=== PATIENT | male | born 1935 | race Caucasian/White ===

== ENCOUNTER 2016-12-28 15:00 | Outpatient (CLI) | payer OTHER | END 2016-12-28 15:01 | disposition home or self-care (01) | DX: I25.10 Atherosclerotic heart disease of native coronary artery without angina pectoris (principal) ==

== ENCOUNTER 2017-06-28 16:14 | Emergency (ER) | payer OTHER ==
[2017-06-28] MEDS ORDERED: ASPIRIN CHEW 81 MG TABLET PO STA (16:39)
--- NOTE | 2017-06-28 16:45 | ED Physician Documentation ---
PD HPI CHEST PAIN - Stated complaint Stated Complaint: CHEST DISCOMFORT - Chief complaint Chief Complaint: Cardiac - History obtained from History obtained from: Patient - History of Present Illness Timing - onset: Other (82-year-old gentleman who is about 20 years out from a coronary bypass and had a negative stress test per him in [place] 2 months ago presents with chest pain. It started as a dull intermittent pain 2 days ago and now has been constant but still dull and mild for the last 24 hours. It is not associated with increased shortness of breath, pedal edema, radiation, dizziness, diaphoresis.) Review of Systems Constitutional: denies: Fever, Chills Ears: denies: Loss of hearing Nose: denies: Rhinorrhea / runny nose, Congestion Throat: denies: Sore throat Cardiac: denies: Palpitations, Pedal edema, Calf pain Respiratory: denies: Dyspnea, Cough GI: denies: Abdominal Pain PD PAST MEDICAL HISTORY - Past Medical History Past Medical History: Yes Cardiovascular: Hypertension, High cholesterol, Coronary artery disease Other Past Medical History: chronic back pain - Past Surgical History Past Surgical History: Yes Cardiovascular: CABG - Present Medications Home Medications: Ambulatory Orders Medication Instructions Recorded Confirmed Aspirin [Aspirin EC] 81 mg PO DAILY 06/28/17 06/28/17 Metoprolol Tartrate 100 mg PO BID 06/28/17 06/28/17 Omeprazole [PriLOSEC] 20 mg PO DAILY 06/28/17 06/28/17 Rosuvastatin Calcium [Crestor] 40 mg PO DAILY 06/28/17 06/28/17 - Allergies Allergies/Adverse Reactions: Allergies Allergy/AdvReac Type Severity Reaction Status Date / Time No Known Drug Allergies Allergy Verified 06/28/17 16:25 - Social History Does the pt smoke?: No Smoking Status: Never smoker Does the pt drink ETOH?: No Does the pt have substance abuse?: No - Family History Family history: reports: Non contributory PD ED PE NORMAL - Vitals Vital signs reviewed: Yes - General General: Alert and oriented X 3, No acute distress - HEENT HEENT: PERRL, EOMI - Neck Neck: Supple, no meningeal sign, No bony TTP - Cardiac Cardiac: RRR, No murmur - Respiratory Respiratory: No respiratory distress, Clear bilaterally - Abdomen Abdomen: Soft, Non tender - Back Back: No CVA TTP, No spinal TTP - Derm Derm: Normal color, Warm and dry - Extremities Extremities: No edema, No calf tenderness / cord - Neuro Neuro: Alert and oriented X 3, Normal speech - Psych Psych: Normal mood, Normal affect Results - Vitals Vitals: Vital Signs - 24 hr 06/28/17 06/28/17 06/28/17 16:22 18:33 19:19 Temperature 36.2 C L Heart Rate 58 L 54 L 54 L Respiratory 18 15 19 Rate Blood Pressure 157/77 H 154/67 H 172/103 H O2 Saturation 99 97 Oxygen O2 Source Room air - EKG (time done) 1639 Rate: Rate (enter#) (54) Rhythm: NSR [place]: LAD Intervals: Normal MD QRS: Normal Ischemia: Non specific changes (Flat inferior T waves, also lateral, no change from prior EKG dated 12/28/2016.) Computer interpretation: Agree with computer - Labs Labs: Laboratory Tests 06/28/17 06/28/17 06/28/17 16:57 16:57 16:57 WBC 5.6 RBC 4.14 L Hgb 13.3 L Hct 38.8 L MCV 93.7 MCH 32.0 H MCHC 34.2 RDW 13.2 Plt Count 172 MPV 8.5 Neut # 3.2 Lymph # 1.6 [place] # 0.8 Eos # 0.1 Baso # 0.0 Absolute Nucleated RBC 0.00 Nucleated RBCs 0.0 Sodium 139 Potassium 3.9 Chloride 106 Carbon Dioxide 27 Anion Gap 6.0 BUN 19 Creatinine 1.3 H Estimated GFR (MDRD) 53 L Glucose 98 Calcium 9.2 Total Bilirubin 0.9 AST 30 ALT 23 Alkaline Phosphatase 45 Troponin I < 0.04 Total Protein 6.9 Albumin 4.4 Globulin 2.5 Albumin/Globulin Ratio 1.8 Lipase 38 06/28/17 19:01 WBC RBC Hgb Hct MCV MCH MCHC RDW Plt Count MPV Neut # Lymph # [place] # Eos # Baso # Absolute Nucleated RBC Nucleated RBCs Sodium Potassium Chloride Carbon Dioxide Anion Gap BUN Creatinine Estimated GFR (MDRD) Glucose Calcium Total Bilirubin AST ALT Alkaline Phosphatase Troponin I < 0.04 Total Protein Albumin Globulin Albumin/Globulin Ratio Lipase - Rads (name of study) 1v chest Radiology: EMP read contemporaneously (NAD) PD MEDICAL DECISION MAKING - ED course ED course: 82-year-old gentleman with known coronary disease, now with atypical chest pain of greater than a days duration and 2 negative troponins in the emergency department and he had a recent negative stress test. Departure - Departure Disposition: 01 Home, Self Care Clinical Impression: Chest pain Qualifiers: Chest pain type: unspecified Qualified Code(s): R07.9 - Chest pain, unspecified Condition: Good Record reviewed to determine appropriate education?: Yes Instructions: ED Chest Pain NonCardiac Comments: Call your doctor to arrange a follow-up appointment, make the next available appointment. In the interim, return anytime if worse or if new symptoms develop. Your blood pressure was elevated today on check into the emergency department. This does not mean that you have hypertension, it is a common phenomenon to come to the emergency department and have elevated blood pressure. I recommend that she see your primary care physician within the week to have it rechecked when you are feeling better.
[2017-06-28] MEDS ORDERED: ASPIRIN CHEW 81 MG TABLET ONE (16:57)
[2017-06-28 17:06] LABS: BASOPHILS % (AUTO) 0.4 %; EOSINOPHILS # (AUTO) 0.1 10^3/uL (0.0-0.7); EOSINOPHILS % (AUTO) 2.3 %; HCT - HEMATOCRIT 38.8 % (42.0-52.0); HGB - HEMOGLOBIN 13.3 g/dL (14.0-18.0); LYMPHOCYTES # (AUTO) 1.6 10^3/uL (1.5-3.5); LYMPHOCYTES % (AUTO) 27.7 %; MEAN CORPUSCULAR HGB CONC 34.2 g/dL (32.0-36.0); MEAN CORPUSCULAR VOLUME 93.7 fL (80.0-94.0); MEAN PLATELET VOLUME 8.5 fL (7.4-11.4); MONOCYTES # (AUTO) 0.8 10^3/uL (0.0-1.0); MONOCYTES % (AUTO) 13.3 %; NEUTROPHILS # (AUTO) 3.2 10^3/uL (1.5-6.6); NEUTROPHILS % (AUTO) 56.3 %; RED BLOOD COUNT 4.14 10^6/uL (4.70-6.10); RED CELL DISTRIBUTION WIDTH 13.2 % (12.0-15.0); UNCORRECTED WHITE BLOOD COUNT 5.6 x10^3/uL; WHITE BLOOD COUNT 5.6 x10^3/uL (4.8-10.8)
[2017-06-28 17:16] LABS: ALBUMIN/GLOBULIN RATIO 1.8 (1.0-2.2); BILIRUBIN,TOTAL 0.9 mg/dL (0.2-1.0); CALCIUM 9.2 mg/dL (8.5-10.3); CREATININE 1.3 mg/dL (0.6-1.2); POTASSIUM 3.9 mmol/L (3.5-5.0); TOTAL PROTEIN 6.9 g/dL (6.7-8.2)
--- NOTE | 2017-06-28 17:33 | XRAY Preliminary Report ---
Exam: XR Chest 1 View IMPRESSION: No acute cardiopulmonary abnormality. [facility] SITE ID: [id number]
--- NOTE | 2017-06-28 17:36 | XRAY Report ---
EXAM: CHEST RADIOGRAPHY EXAM DATE: 06/28/2017 05:17 PM. CLINICAL HISTORY: Chest pain. COMPARISON: 12/03/2009 chest x-ray. TECHNIQUE: 1 view. FINDINGS: Lungs/Pleura: No focal opacities evident. No pleural effusion. No pneumothorax. Mediastinum: Within exam limitations, cardiomediastinal contour is normal. Other: Status post CABG. IMPRESSION: No acute cardiopulmonary abnormality. [facility] Referring Provider Line: [phone] SITE ID: [id number]
[2017-06-28 19:56] VITALS: BP 165/63
== END 2017-06-28 19:56 | disposition home or self-care (01) ==
LOC: ED 16:14
DX: R07.9 Chest pain, unspecified (principal); I10 Essential (primary) hypertension; I25.10 Atherosclerotic heart disease of native coronary artery without angina pectoris; Z95.1 Presence of aortocoronary bypass graft; Z79.82 Long term (current) use of aspirin
CPT/HCPCS: 36415; 71010; 80053; 83690; 84484; 85025; 93005; 99283; 99284; A9270

== ENCOUNTER 2021-06-03 12:12 | Outpatient (CLI) | payer OTHER ==
--- NOTE | 2021-06-03 12:45 | XRAY Report ---
PROCEDURE: Chest 2 View X-Ray INDICATIONS: COUGH TECHNIQUE: 2 view(s) of the chest. COMPARISON: None. FINDINGS: Surgical changes and devices: Median sternotomy wires and surgical clips are seen. Lungs and pleura: No pleural effusions or pneumothorax. Small calcified granuloma is noted projectin g in lateral aspect of right midlung field. No focal infiltrate. Mediastinum: Mediastinal contours are normal. Heart size is normal. Bones and chest wall: No suspicious bony abnormalities. Soft tissues appear unremarkable. IMPRESSION: No acute cardiopulmonary pathology. Reviewed by: Darrick Deleon MD on 06/03/2021 12:44 PM PDT Approved by: Darrick Deleon MD on 06/03/2021 12:44 PM PDT Station ID: [id number]
== END 2021-06-03 12:13 | disposition home or self-care (01) ==
LOC: DI 12:12
PROVIDERS: ATTEND Internal Medicine
DX: R05 Cough (principal)

== ENCOUNTER 2021-10-24 13:56 | Outpatient (CLI) | payer OTHER ==
--- NOTE | 2021-10-24 17:04 | XRAY Report ---
PROCEDURE: Chest 2 View X-Ray INDICATIONS: CHEST PAIN R/O PNA TECHNIQUE: 2 view(s) of the chest. COMPARISON: . FINDINGS: Surgical changes and devices: Status post CABG procedure. Lungs and pleura: No pleural effusions or pneumothorax. Lungs are clear of acute opacities calcifie d granuloma in the right midlung is stable.. Mediastinum: Mediastinal contours are normal. Heart size is normal. Bones and chest wall: No suspicious bony abnormalities. Soft tissues appear unremarkable. IMPRESSION: No acute cardiopulmonary disease process. Reviewed by: Heavenly Trinh MD, PhD on 10/24/2021 5:02 PM PST Approved by: Heavenly Trinh MD, PhD on 10/24/2021 5:02 PM PST Station ID: [id number]
== END 2021-10-24 13:57 | disposition home or self-care (01) ==
LOC: DI 13:56
PROVIDERS: ATTEND Student in an Organized Health Care Education/Training Program
DX: R07.9 Chest pain, unspecified (principal)

== ENCOUNTER 2021-11-06 10:50 | Observation (INO) | payer OTHER ==
--- NOTE | 2021-11-06 10:57 | ED Physician Documentation ---
PD HPI CHEST PAIN - Stated complaint Stated Complaint: CHEST PX - History obtained from History obtained from: Patient - History of Present Illness Timing - onset: How many weeks ago (2-3 weeks of intermittent chest pressure, not strictly associated with activity, but he says he has been doing less activity daily because of it. Will get symptoms at rest at times too. More consistent the past 2 days and has had it this morning since awakening.) Timing - onset during: Other (occuring randomly, but he has been limiting his activity due to it.). No: Exertion, Eating Timing - duration: Minutes Timing - details: Intermittant Quality: Pressure, Tightness. No: Sharp, Tearing Location: Substernal, Left chest Radiation: No: Jaw, Neck, Back Improved by: No: Rest Worsened by: No: Exertion (not consistently, has had the pressure with some act ivity, but has had it at rest as well.), Inspiration, Eating, Movement Associated symptoms: Feeling faint / dizzy. No: Shortness of air, Nausea, General Weakness, Palpitations Similar symptoms before: Has not had sx before (remote history of CAD with CABG, but states no chest pains in recent past until past few weeks, with increasing frequency.) Recently seen: Not recently seen Review of Systems Constitutional: denies: Fever, Chills Nose: denies: Rhinorrhea / runny nose, Congestion Throat: denies: Sore throat Cardiac: denies: Palpitations, Pedal edema Respiratory: denies: Dyspnea, Cough GI: denies: Abdominal Pain, Nausea, Vomiting, Diarrhea, Bloody / black stool Skin: denies: Rash, Lesions Neurologic: denies: Generalized weakness, Near syncope PD PAST MEDICAL HISTORY - Past Medical History Cardiovascular: Hypertension, High cholesterol, Coronary artery disease, Murmur - Past Surgical History Past Surgical History: Yes Cardiovascular: CABG - Present Medications Home Medications: Ambulatory Orders Medication Instructions Recorded Confirmed Aspirin [Aspirin EC] 81 mg PO DAILY 06/28/17 11/06/21 Metoprolol Tartrate 100 mg PO BID 06/28/17 11/06/21 Rosuvastatin Calcium [Crestor] 40 mg PO DAILY 06/28/17 11/06/21 - Allergies Allergies/Adverse Reactions: Allergies Allergy/AdvReac Type Severity Reaction Status Date / Time No Known Drug Allergies Allergy Verified 06/28/17 16:25 - Social History Does the pt smoke?: No Smoking Status: Never smoker Does the pt drink ETOH?: No Does the pt have substance abuse?: No PD ED PE NORMAL - Vitals Vital signs reviewed: Yes - General General: Alert and oriented X 3, No acute distress, Well developed/nourished - HEENT HEENT: Pharynx benign - Neck Neck: Supple, no meningeal sign, No adenopathy - Cardiac Cardiac: RRR, Other (1/6 murmur left chest without radiation. ) - Respiratory Respiratory: Clear bilaterally, Other (no chestwall tenderness. ) - Abdomen Abdomen: Soft, Non tender, No organomegaly - Derm Derm: Normal color, Warm and dry - Extremities Extremities: Normal ROM s pain, No edema, No calf tenderness / cord - Neuro Neuro: Alert and oriented X 3, No motor deficit, Normal speech Results - Vitals Vitals: Vital Signs - 24 hr 11/06/21 11/06/21 11:00 11:29 Temperature 36.4 C L Heart Rate 57 L 51 L Respiratory 18 18 Rate Blood Pressure 171/64 H 167/77 H O2 Saturation 99 98 Oxygen O2 Source Room air - EKG (time done) 10:57 Rate: Rate (enter#) (53) Rhythm: Sinus bradycardia [place]: Normal Intervals: Normal NE QRS: Normal Ischemia: Normal ST segments. No: ST elevation c/w ischemia, ST depression Compare to prior EKG: Unchanged from prior EKG - Labs Labs: Laboratory Tests 11/06/21 11/06/21 11/06/21 11:29 11:29 11:29 WBC 6.0 RBC 3.74 L Hgb 12.1 L Hct 35.8 L MCV 95.7 H MCH 32.4 H MCHC 33.8 RDW 12.6 Plt Count 186 MPV 9.6 Neut # (Auto) 3.5 Lymph # (Auto) 1.1 L [place] # (Auto) 0.9 Eos # (Auto) 0.5 Baso # (Auto) 0.0 Absolute Nucleated RBC 0.00 Nucleated RBC % 0.0 Sodium 137 Potassium 3.9 Chloride 103 Carbon Dioxide 26 Anion Gap 8.0 BUN 16 Creatinine 1.1 Estimated GFR (MDRD) 63 L Glucose 108 H Calcium 9.0 Total Bilirubin 0.6 AST 18 ALT 12 Alkaline Phosphatase 58 Troponin I High Sens 6.9 B-Natriuretic Peptide Total Protein 6.4 L Albumin 3.8 Globulin 2.6 Albumin/Globulin Ratio 1.5 Lipase 36 11/06/21 11:29 WBC RBC Hgb Hct MCV MCH MCHC RDW Plt Count MPV Neut # (Auto) Lymph # (Auto) [place] # (Auto) Eos # (Auto) Baso # (Auto) Absolute Nucleated RBC Nucleated RBC % Sodium Potassium Chloride Carbon Dioxide Anion Gap BUN Creatinine Estimated GFR (MDRD) Glucose Calcium Total Bilirubin AST ALT Alkaline Phosphatase Troponin I High Sens B-Natriuretic Peptide 209 H Total Protein Albumin Globulin Albumin/Globulin Ratio Lipase - Rads (name of study) chest xray Radiology: Prelim report reviewed (no acute process. Prior CABG changes noted (sternotomy wires and clips).), See rad report PD MEDICAL DECISION MAKING - ED course Complexity details: reviewed results, considered differential (concern for unstable /rest angina, with some element of exertional provocation. No change here with GI cocktail. No other obvious cause. Heart score of 5 so moderate risk for ACS. ), d/w patient Departure - Departure Disposition: ED Place in Observation Clinical Impression: Chest pressure, Chest pain, rule out acute myocardial infarction Condition: Stable Record reviewed to determine appropriate education?: Yes
[2021-11-06] MEDS ORDERED: MAG HYDROX/AL HYDROX/SIMETH 30 ML UDC PO STA (11:20)
[2021-11-06] MEDS ORDERED: LIDOCAINE VISCOUS 2% 15 ML UDC MM STA (11:20)
[2021-11-06 11:35] LABS: BASOPHILS % (AUTO) 0.5 %; EOSINOPHILS # (AUTO) 0.5 10^3/uL (0.0-0.7); EOSINOPHILS % (AUTO) 8.5 %; HCT - HEMATOCRIT 35.8 % (42.0-52.0); HGB - HEMOGLOBIN 12.1 g/dL (14.0-18.0); LYMPHOCYTES # (AUTO) 1.1 10^3/uL (1.5-3.5); LYMPHOCYTES % (AUTO) 17.9 %; MEAN CORPUSCULAR HEMOGLOBIN 32.4 pg (27.0-31.0); MEAN CORPUSCULAR HGB CONC 33.8 g/dL (32.0-36.0); MEAN CORPUSCULAR VOLUME 95.7 fL (80.0-94.0); MEAN PLATELET VOLUME 9.6 fL (7.4-11.4); MONOCYTES # (AUTO) 0.9 10^3/uL (0.0-1.0); MONOCYTES % (AUTO) 14.1 %; NEUTROPHILS # (AUTO) 3.5 10^3/uL (1.5-6.6); NEUTROPHILS % (AUTO) 58.8 %; PLT - PLATELET COUNT 186 10^3/uL (130-450); RED BLOOD COUNT 3.74 10^6/uL (4.70-6.10); RED CELL DISTRIBUTION WIDTH 12.6 % (12.0-15.0)
[2021-11-06 11:52] LABS: ALBUMIN 3.8 g/dL (3.2-5.5); ALBUMIN/GLOBULIN RATIO 1.5 (1.0-2.2); BILIRUBIN,TOTAL 0.6 mg/dL (0.2-1.0); CREATININE 1.1 mg/dL (0.6-1.2); POTASSIUM 3.9 mmol/L (3.5-5.0); TOTAL PROTEIN 6.4 g/dL (6.7-8.2)
[2021-11-06] MEDS ORDERED: NITROGLYCERIN SL 0.4 MG TABLET SL STA (11:54)
--- NOTE | 2021-11-06 11:55 | XRAY Report ---
PROCEDURE: Chest 1 View X-Ray INDICATIONS: Chest Pain TECHNIQUE: One view of the chest was acquired. COMPARISON: 10/24/2021, 06/03/2021 FINDINGS: Surgical changes and devices: Post CABG changes are seen. Lungs and pleura: No pleural effusions or pneumothorax. Lungs are clear. Mediastinum: The aorta is prominent and tortuous. The cardiac contours are within normal limits. Bones and chest wall: No suspicious bony lesions. Mild generalized degenerative changes are seen. O verlying soft tissues appear unremarkable. IMPRESSION: No acute cardiopulmonary process is seen. Postoperative and degenerative changes are seen. Reviewed by: Rashad Velasco MD on 11/06/2021 10:53 AM [facility] Approved by: Rashad Velasco MD on 11/06/2021 10:53 AM [facility] Station ID: [id number]
[2021-11-06] MEDS ORDERED: ONDANSETRON ODT 4 MG TABLET TL PRN (13:22)
[2021-11-06] MEDS ORDERED: SODIUM CHLORIDE FLUSH 0.9% 10 ML SYRINGE IVP PRN (13:22)
[2021-11-06] MEDS ORDERED: ACETAMINOPHEN 325 MG TABLET PO PRN (13:22)
[2021-11-06] MEDS ORDERED: NITROGLYCERIN SL 0.4 MG TABLET SL PRN (13:27)
--- NOTE | 2021-11-06 13:30 | HISTORY & PHYSICAL EXAMINATION ---
Chief Complaint - Chief Complaint Chief Complaint: Chest pain History of Present Illness - Admitted From Admitted From:: Home - History Obtained From Records Reviewed: Yes History obtained from: Patient, ER Physician, EMR - History of Present Illness HPI Comment/Other: This is a 86-year-old male with a past medical history significant for coronary artery disease status post CABG approximately 20 years ago who presents today complaining of left-sided chest pain. He states this has been going on now for about 6 months and has been intermittent. It has progressed over the past few days and became more prominent this morning. He states is located over the left side and is nonradiating. It feels more like an ache rather than a true pain. No associated dyspnea, lightheadedness, nausea, vomiting. The pain tends to occur at rest. It is not worse with activity. The only relieving factor he finds is to just rest for a period of time. He states the pain can last for up to hours at a time. We discussed goals of care and he would like to be a full code. History - Past Medical History Cardiovascular: reports: Hypertension, High cholesterol, Coronary artery disease, Murmur - Past Surgical History Cardiovascular: reports: CABG - Family & Social History Family History Comment/Other: He reports no significant family history to his knowledge. Living arrangement: At home Living Situation: With spouse/s.o. Social History Notes: He lives at home with his . He previously smoked but quit quite a few years ago. Meds/Allgy - Home Medications Home Medications: Ambulatory Orders Medication Instructions Recorded Confirmed Aspirin [Aspirin EC] 81 mg PO DAILY 06/28/17 11/06/21 Metoprolol Tartrate 100 mg PO BID 06/28/17 11/06/21 Rosuvastatin Calcium [Crestor] 40 mg PO DAILY 06/28/17 11/06/21 - Allergies Allergies/Adverse Reactions: Allergies Allergy/AdvReac Type Severity Reaction Status Date / Time No Known Drug Allergies Allergy Verified 06/28/17 16:25 Review of Systems - Constitutional Constitutional: denies: Fever, Chills - Ears, Nose & Throat Ears, Nose & Throat: denies: Nasal discharge, Sore throat - Cardiovascular Cariovascular: reports: Chest pain. denies: Palpitations, Edema, Lightheadedness, Syncope, Exertional dyspnea, Decr. exercise tolerance - Respiratory Respiratory: denies: Cough, Sputum production, SOB at rest, SOB with exertion - Gastrointestinal Gastrointestinal: denies: Abdominal pain, Nausea, Vomiting - Genitourinary Genitourinary: denies: Dysuria, Frequency, Urgency - Neurological Neurological: denies: Dizziness - All Other Systems All Other Systems: reports: Reviewed and negative Prior Level of Functionality: He is independent with his ADLs. Exam - Vital Signs Reviewed Vital Signs: Yes Vital Signs: Vital Signs x48h Temp Pulse Resp BP Pulse Ox 11/06/21 13:03 52 L 18 118/58 L 100 11/06/21 11:29 51 L 18 167/77 H 98 11/06/21 11:00 36.4 C L 57 L 18 171/64 H 99 - Physical Exam General Appearance: positive: No acute distress, Alert Eyes Bilateral: positive: Normal inspection, Conjunctivae nml ENT: positive: ENT inspection nml Neck: positive: Nml inspection Respiratory: positive: No respiratory distress. negative: Chest non-tender (He has left-sided chest tenderness.), Wheezes, Rales Cardiovascular: positive: Regular rate & rhythm, Systolic murmur. negative: Tachycardia Abdomen: positive: Non-tender, No distention. negative: Tenderness Skin: positive: Warm, Dry Extremities: positive: No pedal edema Neurologic/Psychiatric: positive: Motor nml. negative: Disoriented to person, Disoriented to place, Disoriented to time Conclusion/Plan - Problem List (1) Chest pain Conclusion/Plan: This is a gentleman with history of coronary artery disease status post CABG who presents with chest pain and has a heart score of 5. His EKG does not suggest ischemia and initial troponin is normal. His pain is somewhat atypical and may be consistent with costochondritis. Nonetheless given his cardiac history, we will place him in observation and continue his home aspirin. We will make him n.p.o. at midnight for Lexiscan stress test tomorrow. If this is negative then he can be discharged home to follow-up with his primary care physician otherwise he will contact cardiology. (2) Coronary artery disease Conclusion/Plan: He has a known history of coronary artery disease with CABG over 20 years ago. Given his chest pain, we will place in observation for stress test. (3) Hypertension Conclusion/Plan: He was in his hypertensive with systolics in the 150s but now he is normotensive. We will hold his home beta-sherlyn for the stress test and then we will resume it. If he remains hypertensive we will add amlodipine. - Lab Results Lab results reviewed: Yes Jeffery Bones: 11/06/21 11:29 11/06/21 11:29 - EKG Results EKG Interpreted Independently: Yes EKG Findings: EKG reveals a sinus rhythm without evidence of ischemia. Core Measures - Anticipated LOS I expect patient to be DC'd or transferred within 96 hours.: Yes - Issues Hospital Issues and Management Plan: 86-year-old male with a history of coronary artery disease status post CABG 20 years ago presents with chest pain. We will place him in observation for a stress test in the morning. - DVT/VTE - Prophylaxis VTE/DVT Device ordered at admit?: Yes VTE/DVT Prophylaxis med ordered at admit?: Yes
[2021-11-06 15:00] LABS: B. PARAPERTUSSIS- RESP PCR PAN NOT DETECTED; B. PERTUSSIS- RESP PCR PANEL NOT DETECTED; C. PNEUMONIAE- RESP PCR PANEL NOT DETECTED; CORONAVIRUS 229E-RESP PCR NOT DETECTED; CORONAVIRUS HKU1-RESP PCR NOT DETECTED; CORONAVIRUS NL63-RESP PCR NOT DETECTED; CORONAVIRUS OC43-RESP PCR NOT DETECTED; HUMAN METAPNEUMOVIRUS NOT DETECTED; INFLUENZA A- RESP PCR PANEL NOT DETECTED; INFLUENZA B - RESP PCR PANEL NOT DETECTED; M. PNEUMONIAE- RESP PCR PANEL NOT DETECTED; PARAINFLUENZA VIRUS 1 NOT DETECTED; PARAINFLUENZA VIRUS 2 NOT DETECTED; PARAINFLUENZA VIRUS 3 NOT DETECTED; PARAINFLUENZA VIRUS 4 NOT DETECTED; RHINOVIRUS/ENTEROVIRUS NOT DETECTED; RSV- RESP PCR PANEL NOT DETECTED; SARS-CoV-2 -RESP PCR PANEL NOT DETECTED
[2021-11-06] MEDS: SODIUM CHLORIDE FLUSH 0.9% 10 ML SYRINGE IVP SCH (17:09)
[2021-11-07] MEDS: SODIUM CHLORIDE FLUSH 0.9% 10 ML SYRINGE IVP SCH ×3 (04:46→16:45)
[2021-11-07] MEDS ORDERED: ENOXAPARIN 40 MG/0.4 ML SYRINGE SUBQ SCH (09:00)
[2021-11-07] MEDS ORDERED: ASPIRIN EC 81 MG TABLET PO SCH (09:00)
[2021-11-07] MEDS ORDERED: REGADENOSON 0.4 MG/5 ML SYRINGE IVP ONE ×2 (14:05→15:54)
[2021-11-07] MEDS ORDERED: AMINOPHYLLINE 500 MG/20 ML VIAL ONE (14:05)
--- NOTE | 2021-11-07 14:57 | CARDIAC PROCEDURE NOTE ---
Stress Test Report Service Date: 11/07/21 Ordering Provider: Dr France Indication for Test: Chest pain Significant Medical History: Chest pain intermittent for many mos Cardiac Risk Factors: Age, Hx HTN, Hx CAD, ex-smoker Type of Stress Test: Pharmacologic Stress Test with MPI Pharmacologic Agent: Lexiscan Procedure: After signing informed consent, the patient underwent a pharmaceutical stress test with nuclear cardiac imaging. The patient had mild SOB and lightheadedness, he had no chest pain. Resting BP: 120/54 Peak BP: 84/48 Resting HR: 60 Peak HR: 86 Blood pressure dropped with Lexiscan (probable vasodilation) and remained low for 8 min. Aminophylline was given for reversal with saline 30cc flush. BP improved to 111/50 Resting EKG: NSR, rate 60, PVC, left IVCD, left anterior fascicular block, poor R wave progression. EKG at peak: no new ST segment ot T wvae chenges were seen. Summary: 1) Abnormal resting EKG. 2) No chest pain developed with pharmaceutical stress. 3) Low BP persisted after Lexiscan given, Aminophylline was given for reversal. 4) EKG showed no ischemic changes. CONCLUSION: 1) No ischemic changes on EKG during this pharmaceutical stress test 2) Nuclear images were reported separately and showed: A small, fixed perfusion defect is seen in the distal perry-septal wall suggestive of a prior infarct. Preserved LVEF. No reversible defects seen to suggest ischemia. IMPRESSION: 1) No myocardial ischemia by pharmaceutical stress test and nuclear imaging. 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 Preserved LVEF. 3) This patient's cardiac risk: Moderate.
[2021-11-07] MEDS ORDERED: AMINOPHYLLINE 500 MG/20 ML VIAL IVP ONE (15:57)
[2021-11-07 16:30] VITALS: BP 157/69
--- NOTE | 2021-11-07 17:23 | Nuclear Medicine Report ---
PROCEDURE: Rest and exercise myocardial perfusion SPECT with gated imaging and ejection fraction INDICATIONS: Chest pain. RADIOPHARMACEUTICAL: 11.1 mCi Tc-99m Myoview IV at rest and 35.1 mCi Tc-99m Myoview IV at peak exerc ise. [id number] was performed. TECHNIQUE: Radiopharmaceutical was injected at peak stress test, and also at rest. SPECT images wer e obtained. SPECT myocardial perfusion images were displayed in short axis, horizontal long axis, an d vertical long axis views. Gated images were reviewed using Auto[employer] software. COMPARISON: None available. FINDINGS: Raw data: There is good myocardial labeling by radiotracer. No significant motion artifacts. Lung- to-heart ratio is 0.36 (normal is less than 0.46 for tetrafosmin tracer). Left ventricle function: Gated images demonstrate normal left ventricle wall thickening. No segment al wall motion abnormality. No transient ischemic dilation; TID is 1.1 (normal less than 1.30). The left ventricle resting end-diastolic volume is 67 mL. Left ventricle stress ejection fraction is 70 %; normal values are above 45%. Myocardial perfusion: There is normal relative distribution of activity in the left and right ventri cular myocardium. There is a small fixed perfusion defect within the distal anteroseptal wall suggest carrie of a prior infarct. No definite reversible defects to suggest ischemia. IMPRESSION: 1. Abnormal myocardial perfusion images with a small fixed perfusion defect in the distal anterosepta l wall suggestive of a prior infarct. No definite reversible component to suggest ischemia. 2. Left ventricular ejection fraction within normal limits without segmental wall motion modalities. PQRS ATTESTATIONS: Measure 322 - Is this imaging test primarily performed on a low-risk surgery patient for preoperative evaluation within 30 days preceding their low-risk non-cardiac surgery? Low-risk surgery is defined as cardiac or myocardial infarction less than 1%, including (but not limited to) endoscopic pr ocedures, superficial procedures, cataract surgery, and excisional breast surgery: Answer: No Measure 323 - Is this imaging test performed primarily for the monitoring of an asymptomatic patient who had percutaneous coronary intervention on the visit date or within 2 years of the visit date? An swer: No Measure 324 - Is this imaging test performed primarily for the initial detection and risk assessment on an asymptomatic, low coronary heart disease patient? Low CHD risk definition = clinicians should consider the maximum number of available patient factors used to estimate risk based on [place] (A TP III criteria), typically age, gender, diabetes, smoking status, and use of blood pressure medicati on, and integrate age appropriate estimates for missing elements, such as LDL or standard blood press ure. Answer: No Reviewed by: Eleuterio Shrestha MD on 11/07/2021 5:22 PM PST Approved by: Eleuterio Shrestha MD on 11/07/2021 5:22 PM PST Station ID: [id number]
--- NOTE | 2021-11-07 17:28 | Discharge Plan ---
Discharge Plan Problem Reviewed?: Yes Disposition: Home, Self Care Condition: Stable Prescriptions: Isosorbide Mononitrate ER [Imdur] 30 mg PO DAILY #30 tablet Metoprolol Tartrate [Lopressor] 50 mg PO BID #60 tablet Diet: Cardiac Activity Restrictions: Activity as Tolerated Health Concerns: You were admitted to the hospital because of chest pain. You underwent a stress test which showed no evidence of acute blockage in your heart. 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 I suspect your pain might be due to the cartilage and muscles in your chest. Plan of Treatment: Please decrease your metoprolol to 50 mg twice a day instead of 100 mg twice a day as I am worried it may lower your heart rate too much. Please begin to take Imdur 30 mg once a day as this can help with chest pain. Please take Tylenol as needed as well for your chest pain. Assessment: The patient's family expressed understanding of the treatment plan. Additional Instructions or Follow Up instructions: Please follow-up with your primary care physician in 1 week. No Smoking: If you smoke, Please STOP! Call for help. Follow-up with: Josiah Castillo MD [Primary Care Provider] -
--- NOTE | 2021-11-07 17:30 | DISCHARGE SUMMARY ---
"Discharge Summary Admit Date: 11/06/21 Discharge Date: 11/07/21 Discharging Provider: Júnior France Primary Care Provider: Josiah Castillo Code Status: Attempt Resuscitation Condition at Discharge: Stable Discharge Disposition: Home, Self Care - DIAGNOSES Admission Diagnoses: Chest pain Coronary artery disease Hypertension Discharge Diagnoses with Status of Each Condition: Chest pain - resolved. Coronary artery disease - stable. Hypertension - stable. Dementia - stable. - HPI History of Present Illness: This is a 86-year-old male with a past medical history significant for coronary artery disease status post CABG approximately 20 years ago who presents today complaining of left-sided chest pain. He states this has been going on now for about 6 months and has been intermittent. It has progressed over the past few days and became more prominent this morning. He states is located over the left side and is nonradiating. It feels more like an ache rather than a true pain. No associated dyspnea, lightheadedness, nausea, vomiting. The pain tends to occur at rest. It is not worse with activity. The only relieving factor he finds is to just rest for a period of time. He states the pain can last for up to hours at a time. We discussed goals of care and he would like to be a full code. 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 No definite reversible component to suggest ischemia. Left ventricular ejection fraction within normal limits without segmental wall abnormalities. - HOSPITAL COURSE Hospital Course: He was placed in observation due to the chest pain which was felt to likely be due to costochondritis. Troponins were trended and within normal limits. He had a stress test which showed evidence of an old infarct but no acute ischemia. He was discharged home on metoprolol but asked to reduce the dose to 50 mg twice a day instead of 100 twice daily due to concerns of bradycardia. He was also prescribed Imdur and asked to Tylenol as needed for pain. This was also discussed with his . - ALLERGIES Allergies/Adverse Reactions: Allergies Allergy/AdvReac Type Severity Reaction Status Date / Time No Known Drug Allergies Allergy Verified 06/28/17 16:25 - MEDICATIONS Home Medications: Ambulatory Orders Medication Instructions Recorded Confirmed Aspirin [Aspirin EC] 81 mg PO DAILY 06/28/17 11/06/21 Rosuvastatin Calcium [Crestor] 40 mg PO DAILY 06/28/17 11/06/21 Isosorbide Mononitrate ER [Imdur] 30 mg PO DAILY #30 tablet 11/07/21 Metoprolol Tartrate [Lopressor] 50 mg PO BID #60 tablet 11/07/21 - PHYSICAL EXAM AT DISCHARGE General Appearance: positive: No acute distress, Alert Eyes Bilateral: positive: Normal inspection, Conjunctivae nml ENT: positive: ENT inspection nml Neck: positive: Nml inspection Respiratory: positive: No respiratory distress. negative: Wheezes, Rales Cardiovascular: positive: Regular rate & rhythm. negative: Tachycardia Abdomen: positive: Non-tender, No distention. negative: Tenderness Skin: positive: Warm, Dry Extremities: positive: No pedal edema Neurologic/Psychiatric: negative: Disoriented to person, Disoriented to place Physical Exam Other/Comments: Vital Signs - 24 hr 11/06/21 11/07/21 11/07/21 20:52 00:39 04:00 Temperature 36.9 C 36.4 C L 36.9 C Heart Rate [ 62 63 58 L Monitoring electrodes] Respiratory 18 20 20 Rate Blood Pressure 111/55 L 124/66 111/47 L [Right Brachial artery] O2 Saturation 97 98 98 11/07/21 11/07/21 08:00 16:00 Temperature 36.4 C L 36.5 C Heart Rate [ 62 63 Monitoring electrodes] Respiratory 18 18 Rate Blood Pressure 137/68 H 157/69 H [Right Brachial artery] O2 Saturation 100 99 Oxygen O2 Source Room air - LABS Result Diagrams: 11/06/21 11:29 11/06/21 11:29 - DIAGNOSTIC IMAGING Diagnostic Imaging Results: Final report reviewed - FOLLOW UP Follow Up: He was asked to follow-up with his primary care physician in 1 week. - TIME SPENT Time Spent in Discharge (Minutes): 32"
--- NOTE | 2021-11-07 17:40 | PHARMACY PROGRESS NOTE ---
- Best Possible Medication History Admit Date and Time: 11/06/21 1322 Processed by: Nursing Medication History completed: Yes As the person ultimately responsible for medication therapy, providers are able to order a medication from an existing home medication list in [facility] via the "Reconcile Routine" prior to Confirmation of that medication by technical support director. Such practice is discouraged except when the physician, in their clinical judgment, deems that a medical need exists for a medication without regard to previous use.
== END 2021-11-07 17:40 | disposition home or self-care (01) ==
LOC: ED 10:50 → MS3 13:22
PROVIDERS: ADMIT Internal Medicine; ATTEND Internal Medicine
DX: R07.89 Other chest pain (principal); I25.10 Atherosclerotic heart disease of native coronary artery without angina pectoris; I10 Essential (primary) hypertension; F03.90 Unspecified dementia, unspecified severity, without behavioral disturbance, psychotic disturbance, mood disturbance, and anxiety; Z20.822 Contact with and (suspected) exposure to COVID-19; Z95.1 Presence of aortocoronary bypass graft; E78.00 Pure hypercholesterolemia, unspecified; Z87.891 Personal history of nicotine dependence; I25.2 Old myocardial infarction
CPT/HCPCS: 0202U; 36415; 71045; 78452; 80053; 83690; 83880; 84484; 85025; 93005; 93017; 96372; 96374; 96375; 99284; 99285; A9270; A9500; G0378; J1650; J2785

== ENCOUNTER 2022-02-20 14:40 | Outpatient (CLI) | payer OTHER ==
[2022-02-20] MEDS ORDERED: IOPAMIDOL-300 100 ML VIAL ONE (14:55)
[2022-02-20] MEDS ORDERED: IOVERSOL 320 50 ML VIAL ONE (14:55)
--- NOTE | 2022-02-20 16:57 | CT Report ---
PROCEDURE: Abdomen/Pelvis W INDICATIONS: RIGHT UPPER QUAD PAIN CONTRAST: IV CONTRAST: Isovue 300 ml: 100 PO CONTRAST: *NO PO CONTRAST TECHNIQUE: After the administration of IV contrast, 5 mm thick sections acquired from the diaphragms to the symp hysis. 5 mm thick coronal and sagittal reformats were acquired. For radiation dose reduction, the f ollowing was used: automated exposure control, adjustment of mA and/or kV according to patient size. COMPARISON: None. FINDINGS: Image quality: Excellent. ABDOMEN: Lung bases: Lung bases are clear. Heart size is normal. Median sternotomy changes. Coronary artery calcification versus surgical change. Solid organs: Several coarse calcifications scattered throughout the liver and spleen. No suspicious masses. The gallbladder is partially decompressed. There is a circumscribed 1.6 cm lesion within the gallbladder neck, presumably a stone. No wall thickening. Biliary system is nondilated. The pancreas is normal. Kidneys demonstrate slight cortical thinning bilaterally and there is a nonobstructing st one in the upper pole of the right kidney. Minor prominence of the right renal pelvis. Minimal to mild right hydroureter. At the right ureterove sicular junction, there is a coarse calcification or collection of calcifications monitoring catheter 1.2 x 0.8 cm with Hounsfield units ranging from 980 -1034. The left ureter is normal. Peritoneum and bowel: The stomach is normal. There are 2 large duodenal diverticula filled with air and fluid arising from the second and third portion of duodenum. The rest of the small bowel loops ar e normal. There is a mildly increased quantity of solid stool present in the colon. Moderate divertic ulosis of the proximal sigmoid colon is present. . No free fluid or air. Nodes and vessels: There are several coarse calcifications in the periportal, portacaval, and epigas tric retroperitoneal region consistent with calcified nonenlarged lymph nodes. No bulky adenopathy. H eavy atherosclerotic calcification of a normal caliber abdominal aorta. The inferior vena cava is rel atively decompressed and the suprahepatic region. . Miscellaneous: No ventral hernias. PELVIS: Genitourinary: Bladder wall thickness is normal. No bladder calculi visible. The prostate gland is normal size. Miscellaneous: No inguinal hernias or adenopathy. Bones: No suspicious bony lesions. No vertebral body compression fractures. IMPRESSION: 1. 1.2 x 1.8 cm collection of right ureterovesicular junction calcifications. These appear chronic as degree of obstruction is very mild. Urology consult recommended. 2. Nonobstructing right upper pole intrarenal calcification. 3. 1.6 cm noncalcified but hyperdense lesion likely within the gallbladder lumen, presumably a stone. Gallbladder has an otherwise normal morphology and is partially decompressed. Correlate clinically a nd consider right upper quadrant ultrasound for further evaluation. 4. Evidence of remote exposure to granulomatous disease. 5. Prominent duodenal diverticula may be retained ingested material and become symptomatic. No acute inflammation is seen at this point. No evidence of obstruction. Reviewed by: Cindy Licea MD on 02/20/2022 4:56 PM PDT Approved by: Cindy Licea MD on 02/20/2022 4:56 PM PDT Station ID: [id number]
[2022-02-20] MEDS ORDERED: IOPAMIDOL-300 100 ML VIAL IVP ONE (22:01)
== END 2022-02-20 14:41 | disposition home or self-care (01) ==
LOC: DI 14:40
PROVIDERS: ATTEND Student in an Organized Health Care Education/Training Program
DX: N20.2 Calculus of kidney with calculus of ureter (principal); R93.5 Abnormal findings on diagnostic imaging of other abdominal regions, including retroperitoneum; K57.10 Diverticulosis of small intestine without perforation or abscess without bleeding
CPT/HCPCS: 74177; Q9967